=== PATIENT | male | born 1990 | race Caucasian/White ===

== ENCOUNTER 2024-11-11 20:45 | Emergency (ER) | payer SELFPAY ==
[2024-11-11 20:47] VITALS: BP 123/82; PULSE 93; RESP 18; TEMP 36.6; O2SAT 100; BMI 26.5
[2024-11-11 21:24] LABS: Absolute Lymphocyte Count 3.83 X10^3/uL (0.83-4.51); Absolute Neutrophil Count 4.6 X10^3/uL (2.0-7.7); Basophil# 0.06 X10^3/uL; Basophil% 0.6 % (0-1); Eosinophil# 0.14 X10^3/uL; Eosinophils% 1.5 % (0-5); Hematocrit 44.7 % (40-54); Hemoglobin 15.6 g/dL (13.0-16.5); Lymphocyte # 3.83 X10^3/ul (0.83-4.51); Lymphocyte % 40.9 % (19-41); Mean Corp Hgb Conc 34.9 g/dL (32-36); Mean Corpuscular Hgb 29.2 pg (27.0-32.0); Mean Corpuscular Volume 83.6 fL (80-94); Mean Platelet Vol. 11.3 fl (6.2-12.0); Monocyte# 0.67 X10^3/uL; Monocyte% 7.2 % (0-10); NRBC Flagged by Analyzer 0 % (0-5); Neutrophil # 4.63 X10^3/uL (2.7-7.7); Neutrophil % 49.5 % (47-70); Platelet Count 201 K/mm3 (150-450); RBC Distribution Width CV 12.5 % (11.6-14.6); RBC Distribution Width SD 37.7 fl (35.1-43.9); Red Blood Count 5.35 M/mm3 (4.6-6.2); White Blood Count 9.4 K/mm3 (4.4-11.0)
--- NOTE | 2024-11-11 22:01 | EDS_ITS ---
HPI HPI - GI History of Present Illness Chief Complaint: Abd Pain Informant: patient Abdominal Pain/Flank Pain Onset: Days (3) Context: Gradual Onset Timing: Intermittent Quality: Burning and Dull Location: RLQ and - (Right inguinal area) Worsened by: Car ride Relieved by: Nothing Nausea/Vomiting/Emesis GI Symptom: Negative for Nausea or Vomiting Diarrhea/Melena/Hematochezia GI Symptom: Positive for Diarrhea; Negative for Melena or Hematochezia Associated Symptoms Associated Symptoms: Positive for Dysuria; Negative for Frequency, Hematuria or Urgency Narrative Narrative: Patient presents with right lower abdominal pain that has been getting worse over the past 3 days. Patient states it is gradually getting worse. Patient describes it as dull and burning. Patient states his over the right lower abdomen and radiates into his right groin and right testicle. Patient states it is worse when he was riding on a tractor and hitting bumps. Patient denies any nausea or vomiting but admits to decreased appetite. Patient admits to some diarrhea but denies any melena or hematochezia. Patient obvious to some burning with urination but denies any hematuria or frequency. PFSH PFSH Medical History no medical history no medical history Home Medications ?Medication ?Instructions ?Recorded ?Last Taken ?Type hydrocodone-acetaminophen 5-325mg 1 tab PO Q6H PRN PRN Pain 3 days 11/12/24 Unknown Rx 5mg-325mg #10 TABLETS ondansetron 4 mg disintegrating 4 mg PO Q8H PRN PRN Na usea #10 tabs 11/12/24 Unknown Rx tablet Allergy/AdvReac Type Severity Reaction Status Date / Time clavulanic acid Allergy Hives Verified 11/11/24 20:50 Surgical History no surgical history no surgical history Social History Smoking Status: Never smoker ROS ROS ED Constitutional Constitutional ED: Denies chills or fever(s) Eyes Eyes: Reports blurry vision; Denies change in vision ENT ENT ED: Denies rhinorrhea or sore throat Cardiovascular Cardiovascular: Denies chest pain or palpitations Respiratory/Chest Respiratory/Chest: Denies cough or dyspnea Gastrointestinal Gastrointestinal: Reports abdominal pain and diarrhea; Denies nausea or vomiting Genitourinary Genitourinary ED: Denies dysuria or hematuria Musculoskeletal Musculoskeletal: Reports back pain; Denies neck pain Integumentary Denies abscess or rash Neurologic Neurologic: Reports headache(s); Denies weakness Allergic/Immunologic Allergic/Immunologic ED: Denies mouth swelling or urticaria EXAM Physical Exam Const Vital Signs: 11/11/24 20:47 11/11/24 22:45 Temperature 98 F Temperature Source Oral Pulse Rate 93 69 Respiratory Rate 18 16 Blood Pressure 123/82 H 115/77 Blood Pressure Mean 95 89 Pulse Ox 100 97 Oxygen Delivery Method Room Air Room Air Positive well nourished and well developed General Appearance ED: well developed and NAD HEENT Reports moist mucous membranes Neck supple and no JVD Resp normal respiratory effort and clear to auscultation bilaterally Cardio regular rate and regular rhythm GI non-distended Palpation: soft and tender LLQ, RLQ and Rovsing's sign; Negative for guarding or rebound tenderness present Extremity full ROM General Extremety ED: Negative for edema or tenderness General Extremity: Negative for edema Neuro CN's II-XII intact bilaterally, moves all extremities and no sensory deficits noted Sensorium / Orientation: alert Motor Exam: strength 5/5 throughout Psych mental status grossly normal and thought process normal MDM MDM MDM Narrative Medical decision making narrative: Differential diagnosis includes appendicitis, ureteral calculus, colitis, diverticulitis, urinary tract infection, and dehydration. CBC will be obtained to assess for leukocytosis and anemia. Patient metabolic profile will be obtained to assess for electrolyte abnormality renal function. Urinalysis will be obtained to assess for urinary tract infection and hematuria. Lipase will be obtained to assess for pancreatitis. CT scan of the abdomen and pelvis will be obtained to assess for ureteral calculus and appendicitis. Lab Data Attestation: I reviewed the patient's lab results. Lab results narrative: CBC was reviewed and was within normal limits. Comprehensive metabolic profile was reviewed and was within normal limits. Urinalysis was reviewed. There is no evidence of urinary tract infection or hematuria. Lipase was reviewed and was normal at 47. Labs: Laboratory Results - last 24 hr 11/11/24 11/11/24 21:18 22:04 WBC 9.4 RBC 5.35 Hgb 15.6 Hct 44.7 MCV 83.6 MCH 29.2 MCHC 34.9 RDW Std Deviation 37.7 RDW Coeff of [place] 12.5 Plt Count 201 MPV 11.3 Immature Gran % (Auto) 0.300 Neut % (Auto) 49.5 Lymph % (Auto) 40.9 [place] % (Auto) 7.2 Eos % (Auto) 1.5 Baso % (Auto) 0.6 Absolute Neuts (auto) 4.6 Absolute Lymphs (auto) 3.83 Nucleated RBC % 0 Sodium 140 Potassium 4.0 Chloride 104 Carbon Dioxide 22.7 Anion Gap 13 BUN 21 H Creatinine 0.88 Estim Creat Clear Calc 116.05 Est GFR (MDRD) Non-Af 114 BUN/Creatinine Ratio 23.5 H Glucose 101 H Calcium 9.5 Total Bilirubin 0.34 AST 24 ALT 23 Alkaline Phosphatase 94 Total Protein 7.4 Albumin 4.4 Globulin 3.0 Albumin/Globulin Ratio 1.5 Lipase 47 Urine Color Yellow Urine Clarity Clear Urine pH 5.0 Ur Specific [place] 1.025 Urine Protein 15 H Urine Glucose (UA) Normal Urine Ketones Negative Urine Occult Blood Negative Urine Nitrite Negative Urine Bilirubin Negative Urine Urobilinogen Normal Ur Leukocyte Esterase Negative Urine RBC 0 SEEN Urine WBC 0 SEEN Ur Squamous Epith Cells 0-5 SEEN Urine Bacteria 2+ Urine Mucus 0 SEEN Radiography Diagnostic Testing: Clinical Impression(s) from Imaging Studies Abdomen/Pelvis CT 11/11/24 22:25 IMPRESSION: Mild concentric urinary bladder wall thickening which may represent detrusor muscle hypertrophy or cystitis. Correlate with urinalysis. Borderline prostatomegaly. Reading Location: [place] [id number] CT scan of the abdomen and pelvis was obtained. There is mild urinary bladder thickening. There is no acute abnormality. There is borderline prostatomegaly. There is no evidence of ureteral calculus. There is no evidence of appendicitis. This was interpreted by the radiologist and was also independently reviewed by myself. Treatment and Re-Evaluation :: Patient was given IV fluids, morphine, and Zofran. Patient was feeling better on reevaluation. Patient was advised of his findings. Patient was given prescriptions for Zofran and a short course of [place]. Patient was instructed to start with fluids and advance his diet as tolerated. Patient was instructed to follow-up with his primary care physician in 5 to 7 days. Patient understood and was agreeable with the plan. All questions were answered Discharge Plan Triage Chief Complaint: Abd Pain ED Provider: Otto Palomo Dx/Rx/DC Orders Clinical Impression: Abdominal pain, Nausea and vomiting Instructions: ED Abdominal Pain Unkn Cause Male... Prescriptions: New ondansetron 4 mg tablet,disintegrating 4 mg PO Q8H PRN PRN (Reason: Nausea) Qty: 10 0RF hydrocodone-acetaminophen 5-325 mg tablet 1 tab PO Q6H PRN PRN (Reason: Pain) 3 Days Qty: 10 0RF Primary Care Provider: Kristel Vitale NP Referrals: Kristel Vitale NP, [employer] [facility] [Primary Care Provider] - 3-5 Days Print Language: Thai Disposition Disposition: Home, Self Care
[2024-11-11 22:06] LABS: Mucous, Urine 0 SEEN /hpf (<or=2+); Red Blood Cells-Urine 0 SEEN /hpf (0-5); White Blood Cells 0 SEEN /hpf (0-5)
[2024-11-11] MEDS: 0.9% Normal Saline (1000mL) 1,000 ML 999 ML IV (22:08)
[2024-11-11] MEDS: Ondansetron 4 MG/2 ML Vial IV (22:08)
[2024-11-11 22:09] LABS: ALB/GLOB Ratio 1.5 RATIO (0.9-2.4); AST(SGOT) 24 U/L (<=37); Alanine Aminotransfer ALT/SGPT 23 U/L (<=46); Albumin, Serum 4.4 g/dL (3.5-5.0); Alkaline Phosphatase 94 U/L (40-129); Anion Gap 13 (5-15); BUN 21 mg/dL (4-19); BUN/Creat Ratio 23.5 RATIO (10-20); Calcium,Total 9.5 mg/dL (7.6-11.0); Carbon Dioxide 22.7 mmol/L (21.0-32.0); Chloride 104 mmol/L (98-108); Creatinine, Serum 0.88 mg/dL (0.70-1.20); EST Glomerular Filtration Rate 114 (>60); Estimated Creatinine Clearance 116.05 ml/min (50-250); Glucose 101 mg/dL (70-99); Lipase 47 U/L (13-75); Protein, Total 7.4 g/dL (5.9-8.4); Sodium Level 140 mmol/L (133-145); Total Bilirubin 0.34 mg/dL (0.00-1.30)
[2024-11-11] MEDS: Morphine 4 MG/ML Syringe IV (22:09)
[2024-11-11 22:15] LABS: Color, Urine Yellow (Yellow); Glucose, Dipstick Normal (Normal); Ketone-Dipstick Negative (Negative); Leukocyte Esterase-Dipstick Negative /ul (Negative); Nitrite-Dipstick Negative (Negative); Occult Blood-Urine Negative /ul (Negative); Protein-Dipstick 15 mg/dl (Negative); Specific Gravity, Urine 1.025 (1.002-1.030); Urine Bilirubin Dipstick Negative (Negative); Urine Clarity Clear (Clear); Urine Urobilinogen Normal (Normal)
--- NOTE | 2024-11-11 22:25 | CT_ITS ---
PROCEDURE: ABDOMEN/PELVIS W IV CONT ONLY 11/11/2024 REASON FOR EXAM: ABDOMINAL PAIN TECHNIQUE: Abdomen and pelvis CT with intravenous contrast. Coronal and Sagittal reconstruction series were provided. PATIENT PREPARATION: Per protocol ORAL CONTRAST TYPE: None. AMOUNT: mL CONTRAST: Isovue 370 VOLUME: 86 mL One or more dose reduction techniques were used (e.g., Automated exposure control, adjustment of the mA and/or kV according to patient size, use of iterative reconstruction technique. RADIATION DOSE SUMMARY: CTDlvol: 9.97+ 15.30 mGy DLP: 920.83 mGycm COMPARISON: None. FINDINGS: Mild dependent changes of the lungs. Mild degenerative changes of the spine. Normal caliber abdominal aorta. No suspicious lymphadenopathy. The liver, gallbladder, pancreas, spleen, and adrenals are unremarkable. Symmetric enhancement of the bilateral kidneys. Right kidney simple cyst. No hydronephrosis. Mild concentric urinary bladder wall thickening. Borderline prostatomegaly. Normal caliber large bowel, small bowel, and appendix. No surrounding inflammatory changes. CT/Abdomen/Pelvis W IV Cont ONLY IMPRESSION: Mild concentric urinary bladder wall thickening which may represent detrusor mu scle hypertrophy or cystitis. Correlate with urinalysis. Borderline prostatomegaly. Reading Location: [id number]
[2024-11-11 22:28] LABS: Bacteria 2+ /hpf (None Seen); Squamous Epithelial Cells - UA 0-5 SEEN /hpf (0-5)
[2024-11-11 22:45] VITALS: BP 115/77; PULSE 69; RESP 16; O2SAT 97
[2024-11-12] VITALS: BP 119/80; PULSE 66; RESP 17; O2SAT 98
[2024-11-12 00:21] VITALS: BP 119/80; PULSE 66; RESP 17; TEMP 36.8; O2SAT 98
== END 2024-11-12 00:22 | disposition home or self-care (01) ==
PROVIDERS: Emergency Provider Emergency Medicine; PCP Nurse Practitioner Family; Visit Provider Emergency Medicine
DX: R10.31 Right lower quadrant pain (principal); R11.2 Nausea with vomiting, unspecified; R30.0 Dysuria
CPT/HCPCS: 74177; 80053; 81001; 83690; 85025; 99283; Q9967; A4216; J2405

== ENCOUNTER 2025-01-04 13:52 | Emergency (ER) | payer SELFPAY ==
[2025-01-04 13:52] VITALS: BP 114/76; PULSE 76; RESP 16; TEMP 36.7; O2SAT 98; BMI 26.2
--- NOTE | 2025-01-04 14:10 | ED.VIS.GI ---
HPI HPI - GI History of Present Illness Chief Complaint: Abd Pain Abdominal Pain/Flank Pain Onset: Days (3) Context: Gradual Onset Timing: Continuous Quality: Burning, Dull and Sharp (At times) Location: RUQ Worsened by: Car ride and - (Deep breathing) Relieved by: Nothing Nausea/Vomiting/Emesis GI Symptom: Negative for Nausea or Vomiting Diarrhea/Melena/Hematochezia GI Symptom: Negative for Diarrhea, Melena or Hematochezia Associated Symptoms Associated Symptoms: Negative for Dysuria, Frequency or Hematuria Narrative Narrative: Patient presents with abdominal pain that has been constant for the past 3 days. Patient states is gradually getting worse. Patient states it is mainly over the right upper quadrant. Patient states it radiates into his right shoulder. Patient describes it as dull and burning. Patient states he gets sharp at times. Patient states it became worse whenever he hit a bump in the road on the way to the emergency department. Patient states that is also worse with deep breathing. Patient denies any nausea or vomiting. Patient denies any diarrhea, melena, or hematochezia. Patient denies any dysuria, frequency, or hematuria. Patient denies any fevers or chills. PFSH PFSH Medical History no medical history no medical history Home Medications ?Medication ?Instructions ?Recorded ?Last Taken ?Type hydrocodone-acetaminophen 5-325mg 1 tab PO Q6H PRN PRN Pain 3 days 01/04/25 Unknown Rx 5mg-325mg #10 TABLETS ondansetron 4 mg disintegrating 4 mg PO Q8H PRN PRN Nausea #10 tabs 01/04/25 Unknown Rx tablet Allergy/AdvReac Type Severity Reaction Status Date / Time clavulanic acid Allergy Hives Verified 01/04/25 13:55 morphine AdvReac Intermediate Other Verified 01/04/25 13:55 Surgical History no surgical history no surgical history Social History Smoking Status: Never smoker ROS ROS ED Constitutional Constitutional ED: Denies chills or fever(s) Eyes Eyes: Denies blurry vision or change in vision ENT ENT ED: Denies rhinorrhea or sore throat Cardiovascular Cardiovascular: Denies chest pain or palpitations Respiratory/Chest Respiratory/Chest: Denies cough or dyspnea Gastrointestinal Gastrointestinal: Reports abdominal pain; Denies nausea or vomiting Genitourinary Genitourinary ED: Denies dysuria or hematuria Musculoskeletal Musculoskeletal: Reports back pain; Denies neck pain Integumentary Denies abscess or rash Neurologic Neurologic: Denies headache(s) or weakness Allergic/Immunologic Allergic/Immunologic ED: Denies mouth swelling or urticaria EXAM Physical Exam Const Vital Signs: 01/04/25 13:52 01/04/25 15:52 Temperature 98.1 F Temperature Source Oral Pulse Rate 76 59 L Respiratory Rate 16 Blood Pressure 114/76 105/68 Blood Pressure Mean 88 80 Pulse Ox 98 99 Oxygen Delivery Method Room Air Room Air Positive well nourished and well developed Constitutional Narrative: BMI is 26.3. General Appearance ED: well developed and NAD; Negative for pallor HEENT Reports moist mucous membranes normocephalic and atraumatic Neck supple and no JVD Resp normal respiratory effort and clear to auscultation bilaterally Cardio regular rate and regular rhythm GI non-distended Palpation: soft, tender epigastric, RLQ, RUQ and Underwood's sign and guarding Neuro CN's II-XII intact bilaterally, moves all extremities and no sensory deficits noted Sensorium / Orientation: alert Motor Exam: strength 5/5 throughout Psych mental status grossly normal Skin General Skin Exam: Negative for jaundice or pallor MDM MDM MDM Narrative Medical decision making narrative: Differential diagnosis includes cholecystitis, cholelithiasis, peptic ulcer disease, duodenal ulcer, pancreatitis, appendicitis, pyelonephritis, electrolyte abnormality, and viral illness. CBC will be obtained to assess for leukocytosis and anemia. Comprehensive metabolic profile will be obtained to assess for hepatic function, renal function, and electrolyte abnormality. Urinalysis will be obtained to assess for urinary tract infection and hematuria. Right upper quadrant ultrasound will be obtained to assess for cholecystitis and cholelithiasis. Lab Data Labs: Laboratory Results - last 24 hr 01/04/25 01/04/25 14:09 15:10 WBC 7.5 RBC 5.30 Hgb 15.2 Hct 44.9 MCV 84.7 MCH 28.7 MCHC 33.9 RDW Std Deviation 38.3 RDW Coeff of [place] 12.4 Plt Count 194 MPV 11.4 Immature Gran % (Auto) 0.300 Neut % (Auto) 52.6 Lymph % (Auto) 38.0 [place] % (Auto) 6.6 Eos % (Auto) 1.7 Baso % (Auto) 0.8 Absolute Neuts (auto) 4.0 Absolute Lymphs (auto) 2.86 Nucleated RBC % 0 Sodium 138 Potassium 3.8 Chloride 102 Carbon Dioxide 25.0 Anion Gap 11 BUN 8 Creatinine 0.75 Estim Creat Clear Calc 136.16 Est GFR (MDRD) Non-Af 120 BUN/Creatinine Ratio 11.2 Glucose 142 H Calcium 9.3 Total Bilirubin 0.81 AST 17 ALT 21 Alkaline Phosphatase 94 Total Protein 7.1 Albumin 4.2 Globulin 3.0 Albumin/Globulin Ratio 1.4 Lipase 30 Urine Color Yellow Urine Clarity Clear Urine pH 7.0 Ur Specific [place] 1.010 Urine Protein Negative Urine Glucose (UA) Normal Urine Ketones Negative Urine Occult Blood Negative Urine Nitrite Negative Urine Bilirubin Negative Urine Urobilinogen Normal Ur Leukocyte Esterase Negative Radiography Diagnostic Testing: Clinical Impression(s) from Imaging Studies Gallbladder Ultrasound 01/04/25 14:15 IMPRESSION: No acute abnormality is seen. Reading Location: [facility] Abdomen/Pelvis CT 01/04/25 15:56 IMPRESSION: Interstitial densities in the lower lobes may represent pulmonary edema or pneumonia. Prominence of the gallbladder wall with nearby peritoneal fat stranding concerning for acute cholecystitis. Ultrasound may be performed for further evaluation. Reading Location: [facility] Right upper quadrant ultrasound was obtained. There is no acute abnormality noted. Gallbladder wall measured 2 mm which is normal and the common bile duct was normal at 4 mm. There is no stones or sludge noted. This was interpreted by the radiologist and was also independently reviewed by myself. CT scan of the abdomen and pelvis was obtained. There is prominence of the gallbladder wall with some nearby peritoneal fat stranding concerning for acute cholecystitis. There is no evidence of bowel obstruction or perforation. There is no evidence of appendicitis. This is interpreted by the radiologist and was also independently reviewed by myself. Treatment and Re-Evaluation :: Patient was given IV fluids, Bentyl, and Zofran. Patient was still having some pain on reevaluation. Patient was given a dose of [place]. Case was discussed with Dr. Peralta from general surgery. He stated that the patient does not require emergency surgery. He states the patient can go home. He will follow-up with the patient as an outpatient. Patient was given a prescription for a short course of [place]. Patient was instructed to eat a bland diet. Patient was instructed to avoid fried foods, fatty foods, and greasy foods. Patient was instructed to return if worse in any way. Patient understood and was agreeable with the plan. All questions were answered. Discharge Plan Triage Chief Complaint: Abd Pain ED Provider: Otto Palomo Dx/Rx/DC Orders Clinical Impression: Abdominal pain, acute, right upper quadrant Instructions: ED Abdominal Pain Unkn Cause Male... Prescriptions: Continued hydrocodone-acetaminophen 5-325 mg tablet 1 tab PO Q6H PRN PRN (Reason: Pain) 3 Days Qty: 10 0RF ondansetron 4 mg tablet,disintegrating 4 mg PO Q8H PRN PRN (Reason: Nausea) Qty: 10 0RF Primary Care Provider: Kristel Vitale NP Referrals: Kristel Vitale NP, [facility] [Primary Care Provider] - 5-7 Days Print Language: [place] Citizen Disposition Disposition: Home, Self Care
--- NOTE | 2025-01-04 14:15 | US_ITS ---
PROCEDURE: GALLBLADDER 01/04/2025 REASON FOR EXAM: Right upper quadrant pain. COMPARISON: Prior CT scan dated November 11, 2024. FINDINGS: Liver: Grossly normal size and echotexture. The liver measures 16.2 cm. Gallbladder: No stones, sludge, wall thickening or tenderness. Gallbladder wall measures 2 mm. Common bile duct: Normal measuring 4 mm.. Pancreas: Visualized portions are unremarkable. The distal body and tail are obscured by bowel gas. Other: Visualized portions of the right kidney are unremarkable. No right upper quadrant ascites. US/Gallbladder IMPRESSION: No acute abnormality is seen. Reading Location: [id number]
[2025-01-04 14:32] LABS: Hematocrit 44.9 % (40-54); Hemoglobin 15.2 g/dL (13.0-16.5); Immature Granulocytes Count 0.020 X10^3/uL (0.0-0.0); Mean Corp Hgb Conc 33.9 g/dL (32-36); Mean Corpuscular Volume 84.7 fL (80-94); Mean Platelet Vol. 11.4 fl (6.2-12.0); NRBC Flagged by Analyzer 0 % (0-5); Platelet Count 194 K/mm3 (150-450); RBC Distribution Width CV 12.4 % (11.6-14.6); RBC Distribution Width SD 38.3 fl (35.1-43.9); Red Blood Count 5.30 M/mm3 (4.6-6.2); White Blood Count 7.5 K/mm3 (4.4-11.0)
[2025-01-04] MEDS: 0.9% Normal Saline (1000mL) 1,000 ML 999 ML IV (14:34)
[2025-01-04 15:07] LABS: AST(SGOT) 17 U/L (<=37); Alanine Aminotransfer ALT/SGPT 21 U/L (<=46); Albumin, Serum 4.2 g/dL (3.5-5.0); Alkaline Phosphatase 94 U/L (40-129); Anion Gap 11 (5-15); BUN 8 mg/dL (4-19); BUN/Creat Ratio 11.2 RATIO (10-20); Calcium,Total 9.3 mg/dL (7.6-11.0); Carbon Dioxide 25.0 mmol/L (21.0-32.0); Chloride 102 mmol/L (98-108); Estimated Creatinine Clearance 136.16 ml/min (50-250); Globulin 3.0 g/dL (2.2-4.2); Glucose 142 mg/dL (70-99); Lipase 30 U/L (13-75); Potassium 3.8 mmol/L (3.3-5.1)
[2025-01-04 15:18] LABS: Mucous, Urine 0 SEEN /hpf (<or=2+); Red Blood Cells-Urine 0 SEEN /hpf (0-5)
[2025-01-04 15:21] LABS: Color, Urine Yellow (Yellow); Glucose, Dipstick Normal (Normal); Ketone-Dipstick Negative (Negative); Leukocyte Esterase-Dipstick Negative /ul (Negative); Nitrite-Dipstick Negative (Negative); Occult Blood-Urine Negative /ul (Negative); Protein-Dipstick Negative (Negative); Specific Gravity, Urine 1.010 (1.002-1.030); Urine Bilirubin Dipstick Negative (Negative)
[2025-01-04 15:52] VITALS: BP 105/68; PULSE 59; O2SAT 99
--- NOTE | 2025-01-04 15:56 | CT_ITS ---
PROCEDURE: ABDOMEN/PELVIS W IV CONT ONLY 01/04/2025 REASON FOR EXAM: Right upper quadrant pain since yesterday. TECHNIQUE: ABDOMEN/PELVIS W IV CONT ONLY Coronal and Sagittal reconstruction series were provided. CONTRAST: Isovue 370 VOLUME: 94 mL One or more dose reduction techniques were used (e.g., Automated exposure control, adjustment of the mA and/or kV according to patient size, use of iterative reconstruction technique. RADIATION DOSE SUMMARY: CTDlvol: 14.58 mGy DLP: 879.33 mGycm COMPARISON: CT abdomen and pelvis 11 November 2024. FINDINGS: Lung bases: Interstitial densities in the lower lobes may represent pulmonary edema or pneumonia. Liver: The liver is unremarkable. Gallbladder: Prominence of the gallbladder wall with nearby peritoneal fat stranding concerning for acute cholecystitis. No biliary dilation. Spleen: Unremarkable. Pancreas: Unremarkable. Adrenals: Unremarkable. Kidneys: A subcentimeter simple cyst at the midpole of the right kidney. The kidneys are otherwise unremarkable. No hydronephrosis. Bladder: The bladder is unremarkable. Reproductive Organs: Unremarkable. Bowel: No bowel wall thickening or bowel obstruction. Appendix: Unremarkable. Lymph nodes: No lymphadenopathy. Vasculature: No aortic aneurysm. Peritoneum / Retroperitoneum: Trace free fluid in the pelvis. No free air. Bones: No acute bony abnormalities. CT/Abdomen/Pelvis W IV Cont ONLY IMPRESSION: Interstitial densities in the lower lobes may represent pulmonary edema or pneu monia. Prominence of the gallbladder wall with nearby peritoneal fat stranding concern ing for acute cholecystitis. Ultrasound may be performed for further evaluation. Reading Location: [id number]
[2025-01-04 17:22] VITALS: BP 105/72; PULSE 80; RESP 16; TEMP 36.3; O2SAT 99
[2025-01-04] MEDS: HYDROcodone Bitartrate/Apap 5/325 Tablet PO (17:26)
[2025-01-04 18:07] LABS: Squamous Epithelial Cells - UA 0-5 SEEN /hpf (0-5)
== END 2025-01-04 17:27 | disposition home or self-care (01) ==
PROVIDERS: Emergency Provider Emergency Medicine; PCP Nurse Practitioner Family; Visit Provider Emergency Medicine
DX: R10.11 Right upper quadrant pain (principal)
CPT/HCPCS: 74177; 76705; 80053; 81001; 83690; 85025; 96361; 96372; 96374; 99283; Q9967; A4216; J2405